=== PATIENT | female | born 1960 | race Caucasian/White ===

== ENCOUNTER 2024-10-02 19:56 | Emergency (ER) | payer OTHER ==
[2024-10-02] MEDS ORDERED: valACYclovir 500 MG TAB ONE (20:08)
== END 2024-10-02 20:56 | disposition home or self-care (01) ==
LOC: MADERS 19:56
DX: R21 Rash and other nonspecific skin eruption (principal); E78.5 Hyperlipidemia, unspecified; F17.200 Nicotine dependence, unspecified, uncomplicated
CPT/HCPCS: 99282